=== PATIENT | male | born 1985 | race Hispanic/Latino ===

== ENCOUNTER 2016-08-07 20:23 | Emergency (ER) | payer SELFPAY ==
[~2016-08-07] VITALS: Ht 160 cm; Wt 57.4 kg
[2016-08-07] MEDS ORDERED: KEFLEX500 MG PO (22:22)
[2016-08-07 22:36] VITALS: BP 114/68
== END 2016-08-07 23:00 | disposition home or self-care (01) ==
LOC: EME 20:23
PROC: 0HCDXZZ Extirpation of Matter from Right Lower Arm Skin, External Approach (ICD-10-PCS; principal; 2016-08-07)
DX: S50.851A Superficial foreign body of right forearm, initial encounter (principal); W45.8XXA Other foreign body or object entering through skin, initial encounter
CPT/HCPCS: 99281; 99283